=== PATIENT | male | born 1935 | race American Indian/Alaskan Native ===

== ENCOUNTER 2018-05-30 15:15 | Outpatient (CLI) | payer MEDICARE, BC | END 2018-05-30 15:16 | disposition critical access hospital (66) | LOC: EMS 15:15 | PROVIDERS: ATTEND Surgery | DX: R11.2 Nausea with vomiting, unspecified (principal); R52 Pain, unspecified; R53.81 Other malaise; R63.0 Anorexia | CPT/HCPCS: A0425; A0429 ==

== ENCOUNTER 2018-05-30 15:28 | Emergency (ER) | payer MEDICARE, BC ==
[2018-05-30] MEDS ORDERED: ONDANSETRON 4 MG/2 ML VIAL IVP STA (15:47)
[2018-05-30] MEDS ORDERED: SODIUM CHLORIDE 0.9% 1,000 ML IV STA (15:47)
[2018-05-30 16:02] LABS: BASOPHILS % (AUTO) 0.1 %; EOSINOPHILS % (AUTO) 0.1 %; HGB - HEMOGLOBIN 14.7 g/dL (14.0-18.0); LYMPHOCYTES # (AUTO) 0.7 10^3/uL (1.5-3.5); MEAN CORPUSCULAR HEMOGLOBIN 29.3 pg (27.0-31.0); MEAN CORPUSCULAR HGB CONC 32.9 g/dL (32.0-36.0); MONOCYTES # (AUTO) 1.5 10^3/uL (0.0-1.0); MONOCYTES % (AUTO) 10.7 %; NEUTROPHILS # (AUTO) 11.9 10^3/uL (1.5-6.6); NEUTROPHILS % (AUTO) 84.1 %; PLT - PLATELET COUNT 153 10^3/uL (130-450); RED BLOOD COUNT 5.03 10^6/uL (4.70-6.10); RED CELL DISTRIBUTION WIDTH 13.3 % (12.0-15.0); WHITE BLOOD COUNT 14.1 x10^3/uL (4.8-10.8)
[2018-05-30 16:15] LABS: ALBUMIN 3.8 g/dL (3.2-5.5); ALBUMIN/GLOBULIN RATIO 1.4 (1.0-2.2); CALCIUM 9.1 mg/dL (8.5-10.3); CREATININE 1.3 mg/dL (0.6-1.2); TOTAL PROTEIN 6.5 g/dL (6.7-8.2)
--- NOTE | 2018-05-30 17:06 | ED Physician Documentation ---
History of Present Illness - Stated complaint Stated Complaint: N/V - Chief complaint Chief Complaint: General - History obtained from History obtained from: Patient, Family - History of Present Illness Timing: How many days ago (2) Pain level max: 2 Pain level now: 0 Improved by: nothing Worsened by: nothing - Additonal information Additional information: 82-year-old male presents the emergency Department after having one episode of vomiting 2 days ago. Has not vomited since. Has had intermittent nausea. He has not been eating and drinking much. Is currently asking for water. No fevers. Has had some body aches. He does have a history of esophageal cancer and does have an AICD in place as well. His contacted his eligibility services representative who recommended that he come here for evaluation. Review of Systems Ten Systems: 10 systems reviewed and negative Constitutional: reports: Myalgias. denies: Fever, Chills Ears: denies: Ear pain Nose: denies: Rhinorrhea / runny nose, Congestion Cardiac: denies: Palpitations Respiratory: denies: Cough GI: reports: Nausea, Vomiting. denies: Diarrhea Skin: denies: Rash Musculoskeletal: denies: Neck pain, Back pain Neurologic: denies: Headache PD PAST MEDICAL HISTORY - Past Medical History Cardiovascular: Congestive heart failure, Hypertension Respiratory: None Endocrine/Autoimmune: None GI: GERD : Benign prostate hypertrophy HEENT: None Psych: None Musculoskeletal: None Derm: None - Past Surgical History Past Surgical History: Yes Cardiovascular: CABG, Pacemaker, AICD, Cardiac catheterization, Other HEENT: Tracheostomy Derm: Skin grafts - Present Medications Home Medications: Ambulatory Orders Medication Instructions Recorded Confirmed Atorvastatin Calcium [Lipitor] 80 mg PO DAILY 01/09/14 08/21/15 Colesevelam HCl [Welchol] 625 mg PO BID 01/09/14 08/21/15 Ezetimibe [Zetia] 10 mg PO QD 01/09/14 08/21/15 Metoprolol Tartrate [Lopressor] 12.5 mg PO BID 01/09/14 08/21/15 Rivaroxaban [Xarelto] 20 mg PO DAILY 01/09/14 08/21/15 diazePAM [Diazepam] 5 mg PO TID PRN 01/09/14 08/21/15 Ondansetron Odt [Zofran] 4 mg TL Q6H PRN #10 tablet 05/30/18 - Allergies Allergies/Adverse Reactions: Allergies Allergy/AdvReac Type Severity Reaction Status Date / Time No Known Drug Allergies Allergy Verified 05/30/18 15:38 - Social History Does the pt smoke?: No Smoking Status: Never smoker Does the pt drink ETOH?: No Does the pt have substance abuse?: No - Immunizations Immunizations are current?: Yes PD ED PE NORMAL - Vitals Vital signs reviewed: Yes - General General: Alert and oriented X 3, No acute distress - HEENT HEENT: Moist mucous membranes - Neck Neck: Supple, no meningeal sign - Cardiac Cardiac: RRR, Strong equal pulses - Respiratory Respiratory: No respiratory distress, Clear bilaterally - Abdomen Abdomen: Soft, Non tender, Non distended - Derm Derm: Warm and dry - Extremities Extremities: No edema - Neuro Neuro: Alert and oriented X 3 Results - Vitals Vitals: Vital Signs - 24 hr 05/30/18 05/30/18 05/30/18 15:38 18:21 19:39 Temperature 37.2 C 37.1 C Heart Rate 62 71 Respiratory 16 12 16 Rate Blood Pressure 84/52 L 94/63 O2 Saturation 97 96 05/30/18 20:10 Temperature Heart Rate Respiratory 16 Rate Blood Pressure O2 Saturation 99 Oxygen O2 Source Room air - EKG (time done) 1806 Rate: Rate (enter#) (64) Rhythm: Paced Computer interpretation: Agree with computer - Labs Labs: Laboratory Tests 05/30/18 05/30/18 05/30/18 15:56 15:56 15:56 WBC 14.1 H RBC 5.03 Hgb 14.7 Hct 44.8 MCV 89.0 MCH 29.3 MCHC 32.9 RDW 13.3 Plt Count 153 MPV 8.0 Neut # (Auto) 11.9 H Lymph # (Auto) 0.7 L [place] # (Auto) 1.5 H Eos # (Auto) 0.0 Baso # (Auto) 0.0 Absolute Nucleated RBC 0.00 Nucleated RBC % 0.0 Sodium 136 Potassium 4.3 Chloride 99 L Carbon Dioxide 26 Anion Gap 11.0 BUN 32 H Creatinine 1.3 H Estimated GFR (MDRD) 53 L Glucose 130 H Calcium 9.1 Total Bilirubin 1.0 AST 74 H ALT 71 H Alkaline Phosphatase 39 L Troponin I 0.31 Total Protein 6.5 L Albumin 3.8 Globulin 2.7 Albumin/Globulin Ratio 1.4 Lipase 36 Influenza A (Rapid) Influenza B (Rapid) 05/30/18 05/30/18 18:02 18:54 WBC RBC Hgb Hct MCV MCH MCHC RDW Plt Count MPV Neut # (Auto) Lymph # (Auto) [place] # (Auto) Eos # (Auto) Baso # (Auto) Absolute Nucleated RBC Nucleated RBC % Sodium Potassium Chloride Carbon Dioxide Anion Gap BUN Creatinine Estimated GFR (MDRD) Glucose Calcium Total Bilirubin AST ALT Alkaline Phosphatase Troponin I 0.23 Total Protein Albumin Globulin Albumin/Globulin Ratio Lipase Influenza A (Rapid) Negative Influenza B (Rapid) Negative PD MEDICAL DECISION MAKING - ED course Complexity details: reviewed results, re-evaluated patient, considered differential, d/w patient, d/w family ED course: 82-year-old male with chest pain and emesis x1 2 days ago. Chest pain is following emesis and felt like normal reflux to him. Initial troponin was mildly elevated But within the indeterminate range, after a few hours this was repeated and it has gone down. No acute findings on EKG. He is well-appearing, nontoxic. Feels much better after IV fluids and is ambulating without difficulty. We will continue supportive care and follow-up with his doctor. Patient and family counseled regarding signs and symptoms for which I believe and urgent re-evaluation would be necessary. Patient with good understanding of and agreement to plan and is comfortable going home at this time This document was made in part using voice recognition software. While efforts are made to proofread this document, sound alike and grammatical errors may occur. Departure - Departure Disposition: 01 Home, Self Care Clinical Impression: Dehydration Condition: Good Instructions: ED Dehydration Follow-Up: Lambert Kim MD [Primary Care Provider] - Within 3 Days Prescriptions: Ondansetron Odt [Zofran] 4 mg TL Q6H PRN #10 tablet PRN Reason: Nausea / Vomiting Comments: Go home and rest. Drink plenty of fluids. Return if you worsen. Discharge Date/Time: 05/30/18 20:14
[2018-05-30 18:22] VITALS: BP 94/63
[2018-05-30] MEDS ORDERED: SODIUM CHLORIDE 0.9% 1,000 ML IV ONE (18:47)
== END 2018-05-30 20:14 | disposition home or self-care (01) ==
LOC: EDUNIT# → ED 15:28
DX: E86.0 Dehydration (principal); R94.31 Abnormal electrocardiogram [ECG] [EKG]; Z95.810 Presence of automatic (implantable) cardiac defibrillator; Z95.1 Presence of aortocoronary bypass graft; Z85.01 Personal history of malignant neoplasm of esophagus; Z93.0 Tracheostomy status
CPT/HCPCS: 36415; 80053; 83690; 84484; 85025; 87275; 87276; 93005; 96360; 96361; 99283; 99284

== ENCOUNTER 2018-07-11 08:00 | Outpatient (CLI) | payer MEDICARE, BC ==
[2018-07-11 18:47] LABS: BASOPHILS % (AUTO) 0.9 %; EOSINOPHILS # (AUTO) 0.2 10^3/uL (0.0-0.7); EOSINOPHILS % (AUTO) 3.7 %; HGB - HEMOGLOBIN 14.3 g/dL (14.0-18.0); MEAN CORPUSCULAR HEMOGLOBIN 29.8 pg (27.0-31.0); MEAN CORPUSCULAR HGB CONC 32.6 g/dL (32.0-36.0); MEAN CORPUSCULAR VOLUME 91.4 fL (80.0-94.0); MEAN PLATELET VOLUME 8.7 fL (7.4-11.4); MONOCYTES # (AUTO) 0.5 10^3/uL (0.0-1.0); MONOCYTES % (AUTO) 8.1 %; NEUTROPHILS # (AUTO) 3.9 10^3/uL (1.5-6.6); NEUTROPHILS % (AUTO) 70.3 %; PLT - PLATELET COUNT 188 10^3/uL (130-450); RED BLOOD COUNT 4.81 10^6/uL (4.70-6.10); RED CELL DISTRIBUTION WIDTH 13.4 % (12.0-15.0); WHITE BLOOD COUNT 5.6 x10^3/uL (4.8-10.8)
[2018-07-11 19:02] LABS: ALBUMIN 4.4 g/dL (3.2-5.5); ALBUMIN/GLOBULIN RATIO 1.5 (1.0-2.2); CALCIUM 9.6 mg/dL (8.5-10.3); CREATININE 0.8 mg/dL (0.6-1.2); TOTAL PROTEIN 7.3 g/dL (6.7-8.2)
[2018-07-11 19:18] LABS: THYROID STIMULATING HORMONE 8.78 uIU/mL (0.34-5.60)
[2018-07-11 19:20] LABS: FREE T4 (FREE THYROXINE) 0.67 ng/dL (0.58-1.64)
== END 2018-07-11 23:59 | disposition home or self-care (01) ==
LOC: LAB.WCP 08:00
PROVIDERS: ATTEND Family Medicine
DX: I48.92 Unspecified atrial flutter (principal); E03.9 Hypothyroidism, unspecified; R53.83 Other fatigue; R06.09 Other forms of dyspnea; R63.0 Anorexia
CPT/HCPCS: 36415; 80053; 83880; 84439; 84443; 85025

== ENCOUNTER 2018-07-30 13:55 | Outpatient (CLI) | payer MEDICARE, BC ==
[2018-07-30 19:09] LABS: CALCIUM 9.1 mg/dL (8.5-10.3); MAGNESIUM 2.3 mg/dL (1.7-2.8)
== END 2018-07-30 13:56 | disposition home or self-care (01) ==
LOC: LAB.WCP 13:55
PROVIDERS: ATTEND Specialist
DX: I47.2 Ventricular tachycardia (principal)
CPT/HCPCS: 36415; 80048; 83735

== ENCOUNTER 2018-11-13 08:00 | Outpatient (CLI) | payer MEDICARE, BC ==
[2018-11-13 12:25] LABS: BASOPHILS # (AUTO) 0.1 10^3/uL (0.0-0.1); EOSINOPHILS # (AUTO) 0.3 10^3/uL (0.0-0.7); EOSINOPHILS % (AUTO) 5.2 %; HGB - HEMOGLOBIN 14.4 g/dL (14.0-18.0); LYMPHOCYTES # (AUTO) 0.8 10^3/uL (1.5-3.5); LYMPHOCYTES % (AUTO) 16.6 %; MEAN CORPUSCULAR HEMOGLOBIN 29.9 pg (27.0-31.0); MEAN CORPUSCULAR VOLUME 93.6 fL (80.0-94.0); MEAN PLATELET VOLUME 10.8 fL (7.4-11.4); MONOCYTES # (AUTO) 0.4 10^3/uL (0.0-1.0); MONOCYTES % (AUTO) 7.8 %; NEUTROPHILS # (AUTO) 3.5 10^3/uL (1.5-6.6); PLT - PLATELET COUNT 199 10^3/uL (130-450); RED BLOOD COUNT 4.81 10^6/uL (4.70-6.10); RED CELL DISTRIBUTION WIDTH 12.8 % (12.0-15.0)
[2018-11-13 12:33] LABS: HB2 TOTAL 14.8 g/dL; HEMOGLOBIN A1C 0.59 g/dL; HEMOGLOBIN A1C % 5.8 % (4.6-6.2)
[2018-11-13 12:54] LABS: ALBUMIN 4.1 g/dL (3.2-5.5); ALBUMIN/GLOBULIN RATIO 1.2 (1.0-2.2); ALKALINE PHOSPHATASE 53 IU/L (42-121); ALT ALANINE AMINOTRANSFERASE 19 IU/L (10-60); AST ASPARTATE AMINOTRANSFERASE 29 IU/L (10-42); BUN - BLOOD UREA NITROGEN 14 mg/dL (6-20); CALCIUM 9.3 mg/dL (8.5-10.3); CARBON DIOXIDE - CO2 26 mmol/L (21-32); CHLORIDE 103 mmol/L (101-111); CHOL/HDL RATIO 2.7 (<5.0); CHOLESTEROL 137 mg/dL; GFR - MDRD 71 (>89); GLUCOSE 120 mg/dL (70-100); HDL CHOLESTEROL 50 mg/dL; LDL CHOLESTEROL,CALCULATED 64 mg/dL; LDL/HDL RATIO 1.3 (<3.6); SODIUM 140 mmol/L (135-145); TOTAL PROTEIN 7.4 g/dL (6.7-8.2); VLDL CHOLESTEROL 23 mg/dL
== END 2018-11-13 23:59 | disposition home or self-care (01) ==
LOC: LAB.WCP 08:00
PROVIDERS: ATTEND Family Medicine
DX: E74.39 Other disorders of intestinal carbohydrate absorption (principal); R73.09 Other abnormal glucose; E78.5 Hyperlipidemia, unspecified; I10 Essential (primary) hypertension; E03.9 Hypothyroidism, unspecified
CPT/HCPCS: 36415; 80053; 80061; 83036; 83721; 84443; 85025

== ENCOUNTER 2019-01-03 11:06 | Emergency (ER) | payer MEDICARE, BC ==
[2019-01-03 11:31] LABS: BILIRUBIN,URINE NEGATIVE (NEGATIVE); GLUCOSE, URINE (UA) NEGATIVE (NEGATIVE); KETONES,URINE (UA) TRACE mg/dL (NEGATIVE); LEUKOCYTE ESTERASE, URINE TRACE (NEGATIVE); NITRITE,URINE NEGATIVE (NEGATIVE); OCCULT BLOOD,URINE LARGE (NEGATIVE); PROTEIN,URINE >=300 mg/dL (NEGATIVE); UROBILINOGEN,URINE 0.2 (NORMAL) E.U./dL (NORMAL)
[2019-01-03 11:34] LABS: CLARITY,URINE SL. CLOUDY (CLEAR)
[2019-01-03 11:35] LABS: BACTERIA,URINE Few /HPF (None Seen); SQUAMOUS EPITHELIAL CELL,UR RARE Squamous (<= Few)
[2019-01-03 12:15] LABS: BASOPHILS % (AUTO) 0.5 %; EOSINOPHILS # (AUTO) 0.1 10^3/uL (0.0-0.7); EOSINOPHILS % (AUTO) 1.8 %; HGB - HEMOGLOBIN 13.1 g/dL (14.0-18.0); LYMPHOCYTES # (AUTO) 0.7 10^3/uL (1.5-3.5); LYMPHOCYTES % (AUTO) 9.2 %; MEAN CORPUSCULAR HEMOGLOBIN 28.9 pg (27.0-31.0); MEAN CORPUSCULAR HGB CONC 31.5 g/dL (32.0-36.0); MEAN CORPUSCULAR VOLUME 91.8 fL (80.0-94.0); MEAN PLATELET VOLUME 9.7 fL (7.4-11.4); MONOCYTES # (AUTO) 0.7 10^3/uL (0.0-1.0); MONOCYTES % (AUTO) 8.5 %; NEUTROPHILS # (AUTO) 6.2 10^3/uL (1.5-6.6); NEUTROPHILS % (AUTO) 79.7 %; PLT - PLATELET COUNT 181 10^3/uL (130-450); RED BLOOD COUNT 4.53 10^6/uL (4.70-6.10); RED CELL DISTRIBUTION WIDTH 12.5 % (12.0-15.0); WHITE BLOOD COUNT 7.7 x10^3/uL (4.8-10.8)
[2019-01-03 12:23] LABS: CALCIUM 9.1 mg/dL (8.5-10.3)
--- NOTE | 2019-01-03 13:31 | CT Report ---
Reason: eval for kidney stone Procedure Date: 01/03/2019 Accession Number: [id number] / [id number] Procedure: CT - Abdomen/Pelvis WO CPT Code: FULL RESULT: EXAM: CT ABDOMEN AND PELVIS (CT KUB) EXAM DATE: 01/03/2019 12:25 PM. CLINICAL HISTORY: Evaluate for kidney stone. Painful urination. COMPARISONS: None. TECHNIQUE: Routine axial helical CT imaging was performed through the abdomen and pelvis without IV contrast. Reconstructions: Coronal and sagittal. In accordance with CT protocol optimization, one or more of the following dose reduction techniques were utilized for this exam: automated exposure control, adjustment of mA and/or KV based on patient size, or use of iterative reconstructive technique. FINDINGS: Lung Bases: Mild cardiomegaly. Right Kidney/Ureter: No stones, hydronephrosis, or hydroureter. No perinephric fat stranding. Small cyst. Left Kidney/Ureter: No stones, hydronephrosis, or hydroureter. No perinephric fat stranding. Other Solid Organs: Noncontrast images of the solid organs are grossly unremarkable. Gallbladder/Bile Ducts: Small calcified gallstones. Peritoneal Cavity: No free fluid, free air or yanelis adenopathy. Bowel is grossly unremarkable with note of moderate stool burden. Pelvic Organs: No bladder stones. Wall may be slightly inflamed but not well distended. Suspect tiny bladder diverticulum on the right. Prostate grossly unremarkable. Vasculature: Moderate atherosclerotic disease of the aorta and branches. No aneurysm seen. Other: Small fat-containing right inguinal hernia without apparent complication. IMPRESSION: 1. No urinary tract stones or obstruction. 2. Question cystitis. 3. Mild cardiomegaly. 4. Cholelithiasis. 5. Moderate stool burden. RADIA
[2019-01-03] MEDS ORDERED: PHENAZOPYRIDINE 100 MG TABLET PO STA (13:58)
--- NOTE | 2019-01-03 14:01 | ED Physician Documentation ---
PD HPI MALE - Stated complaint Stated Complaint: MALE - Chief complaint Chief Complaint: UTI - History obtained from History obtained from: Patient, Family - History of Present Illness Timing - onset: How many days ago (2) Timing - duration: Days (2) Timing - details: Gradual onset Severity Comments: moderate to severe Associated symptoms: Dysuria, Urinary frequency, Hematuria PD HPI MALE CONTRIB FACTORS: No: Indwelling catheter Similar symptoms before: Has not had sx before Recently seen: Not recently seen - Treatment prior to arrival Treatment prior to arrival: none Review of Systems Ten Systems: 10 systems reviewed and negative Constitutional: denies: Fever, Chills Cardiac: reports: Reviewed and negative Respiratory: reports: Reviewed and negative GI: reports: Abdominal Pain. denies: Nausea, Vomiting, Diarrhea, Hematemesis, Bloody / black stool : reports: Dysuria, Frequency, Hematuria. denies: Hesitancy, Incontinent, Discharge, Vaginal bleeding Neurologic: reports: Reviewed and negative Immunocompromised: reports: Reviewed and negative PD PAST MEDICAL HISTORY - Past Medical History Past Medical History: Yes Cardiovascular: Congestive heart failure, Hypertension Respiratory: None Endocrine/Autoimmune: None GI: GERD : Benign prostate hypertrophy HEENT: None Psych: None Musculoskeletal: None Derm: None - Past Surgical History Past Surgical History: Yes Cardiovascular: CABG, Pacemaker, AICD, Cardiac catheterization, Other HEENT: Tracheostomy Derm: Skin grafts - Present Medications Home Medications: Ambulatory Orders Medication Instructions Recorded Confirmed Atorvastatin Calcium [Lipitor] 80 mg PO DAILY 01/09/14 08/21/15 Colesevelam HCl [Welchol] 625 mg PO BID 01/09/14 08/21/15 Ezetimibe [Zetia] 10 mg PO QD 01/09/14 08/21/15 Metoprolol Tartrate [Lopressor] 12.5 mg PO BID 01/09/14 08/21/15 Rivaroxaban [Xarelto] 20 mg PO DAILY 01/09/14 08/21/15 diazePAM [Diazepam] 5 mg PO TID PRN 01/09/14 08/21/15 Ondansetron Odt [Zofran] 4 mg TL Q6H PRN #10 tablet 05/30/18 Cefpodoxime Proxetil 200 mg PO BID #28 tablet 01/03/19 Phenazopyridine HCl [Pyridium] 200 mg PO TID PRN #6 tablet 01/03/19 - Allergies Allergies/Adverse Reactions: Allergies Allergy/AdvReac Type Severity Reaction Status Date / Time No Known Drug Allergies Allergy Verified 01/03/19 11:11 - Social History Does the pt smoke?: No Smoking Status: Never smoker Does the pt drink ETOH?: No Does the pt have substance abuse?: No - Immunizations Immunizations are current?: Yes PD ED PE NORMAL - Vitals Vital signs reviewed: Yes - General General: Alert and oriented X 3, No acute distress, Well developed/nourished - HEENT HEENT: Atraumatic, Pharynx benign - Neck Neck: Supple, no meningeal sign, No JVD - Cardiac Cardiac: RRR - Respiratory Respiratory: No respiratory distress - Abdomen Abdomen: Soft, Non distended - Male Male : Deferred - Rectal Rectal: Deferred - Derm Derm: Normal color, Warm and dry, No rash - Extremities Extremities: No deformity, No edema - Neuro Neuro: Alert and oriented X 3 Eye Opening: Spontaneous Motor: Obeys Commands Verbal: Oriented GCS Score: 15 - Psych Psych: Normal mood, Normal affect PD ED PE EXPANDED - Male Male : Other (suprapubic tenderness, no CVA tenderness) Results - Vitals Vitals: Vital Signs - 24 hr 01/03/19 01/03/19 11:11 11:46 Temperature 37.1 C 37.3 C Heart Rate 77 66 Respiratory 15 16 Rate Blood Pressure 99/86 H 118/57 L O2 Saturation 100 94 Oxygen O2 Source Room air - Labs Labs: Laboratory Tests 01/03/19 01/03/19 01/03/19 11:19 12:08 12:08 WBC 7.7 RBC 4.53 L Hgb 13.1 L Hct 41.6 L MCV 91.8 MCH 28.9 MCHC 31.5 L RDW 12.5 Plt Count 181 MPV 9.7 Neut # (Auto) 6.2 Lymph # (Auto) 0.7 L [place] # (Auto) 0.7 Eos # (Auto) 0.1 Baso # (Auto) 0.0 Absolute Nucleated RBC 0.00 Nucleated RBC % 0.0 Sodium 137 Potassium 4.1 Chloride 102 Carbon Dioxide 27 Anion Gap 8.0 BUN 15 Creatinine 1.0 Estimated GFR (MDRD) 71 L Glucose 152 H Calcium 9.1 Urine Color YELLOW Urine Clarity SL. CLOUDY Urine pH 6.0 Ur Specific [place] 1.025 Urine Protein >=300 H Urine Glucose (UA) NEGATIVE Urine Ketones TRACE Urine Occult Blood LARGE H Urine Nitrite NEGATIVE Urine Bilirubin NEGATIVE Urine Urobilinogen 0.2 (NORMAL) Ur Leukocyte Esterase TRACE H Urine RBC 11-25 H Urine WBC 4-5 Ur Squamous Epith Cells RARE Squamous Urine Bacteria Few Ur Microscopic Review INDICATED Urine Culture Comments INDICATED - Rads (name of study) CT abdomen and pelvis Radiology: Final report received, See rad report (no kidney stones, gallstones present, cystitis present, inguinal hernia present without incarceration) Procedures - Bedside sono Bedside sono by EMP: Performed bedside US of bladder which shows a thickened bladder wall but no urinary retention. Bladder volume <50 post voiding. Bilateral renal US shows no hydronephrosis and is unremarkable. PD MEDICAL DECISION MAKING - ED course Complexity details: reviewed results, re-evaluated patient, considered differential, d/w patient, d/w family ED course: ddx- UTI, kidney stones, urinary retention, urinary obstruction, cystitis 83 y/o M with hx and exam as documented, His bladder scan is not consistent with urinary retention. he has a thickened bladder wall and hematuria, he is on Xarelto but has no other bleeding. HiS UA is consistent with a possible UTI which is supported by his CT scan of his abdomen. there were no kidney stones and he does have gallstones but these are asymptomatic as well as a R inguinal hernia which has been repaired previously per the pt and is again asymptomatic. This is an uncomplicatd UTI thus will start oral antibiotics, pyridium prn for discomfort. PT is stable for discharge with normal labs other than the UA. Discussed results and plan of care with pt and his to understand and agree with plan to go home with outpt management. Departure - Departure Disposition: 01 Home, Self Care Clinical Impression: UTI (urinary tract infection) Qualifiers: Urinary tract infection type: acute cystitis Hematuria presence: with hematuria Qualified Code(s): N30.01 - Acute cystitis with hematuria Condition: Stable Record reviewed to determine appropriate education?: Yes Instructions: ED UTI Cystitis Male Follow-Up: Lambert Kim MD [Primary Care Provider] - Within 1 week (recheck your symptoms ) Prescriptions: Cefpodoxime Proxetil 200 mg PO BID #28 tablet Phenazopyridine HCl [Pyridium] 200 mg PO TID PRN #6 tablet PRN Reason: dysuria Comments: Your results show a bladder infection called cystitis as well as gallstones and a Right inguinal hernia. Your symptoms of blood in your urine and urinary frequency are due to the cystitis. You should take the prescribed antibiotics as well as the pryidium as needed for bladder pain and discomfort. Follow up with your regular doctor to recheck your symptoms.
[2019-01-03 14:18] VITALS: BP 112/79
== END 2019-01-03 14:18 | disposition home or self-care (01) ==
LOC: ED 11:06
DX: N30.01 Acute cystitis with hematuria (principal); I11.0 Hypertensive heart disease with heart failure; I50.9 Heart failure, unspecified; K21.9 Gastro-esophageal reflux disease without esophagitis; N40.0 Benign prostatic hyperplasia without lower urinary tract symptoms; Z95.1 Presence of aortocoronary bypass graft; Z95.810 Presence of automatic (implantable) cardiac defibrillator; Z79.01 Long term (current) use of anticoagulants; Z79.899 Other long term (current) drug therapy
CPT/HCPCS: 36415; 74176; 80048; 81001; 85025; 87086; 87181; 99284; A9270; 81003

== ENCOUNTER 2019-08-13 08:00 | Outpatient (CLI) | payer MEDICARE, OTHER ==
[2019-08-13 14:06] LABS: ALBUMIN 4.1 g/dL (3.2-5.5); ALBUMIN/GLOBULIN RATIO 1.4 (1.0-2.2); BILIRUBIN,TOTAL 1.2 mg/dL (0.2-1.0); CALCIUM 9.2 mg/dL (8.5-10.3); CREATININE 0.9 mg/dL (0.6-1.2); MAGNESIUM 2.3 mg/dL (1.7-2.8)
== END 2019-08-13 23:59 | disposition home or self-care (01) ==
LOC: LAB.WCP 08:00
PROVIDERS: ATTEND Specialist
DX: I47.2 Ventricular tachycardia (principal); E78.2 Mixed hyperlipidemia
CPT/HCPCS: 36415; 80053; 80061; 81599; 83704; 83721; 83735

== ENCOUNTER 2019-12-15 09:16 | Outpatient (CLI) | payer MEDICARE, OTHER ==
--- NOTE | 2019-12-15 09:20 | XRAY Report ---
PROCEDURE: Foot 3 View LT INDICATIONS: LEFT FOOT PAIN TECHNIQUE: 3 views of the foot were acquired. COMPARISON: None FINDINGS: Bones: Diffuse osteopenia. Nondisplaced fracture involving the proximal phalanx of the left fifth toe . Possible nondisplaced fracture involving the distal phalanx of the left fifth toe. Healed fracture deformities involving the middle phalanx of the left third toe. Remainder of the osseous structures a ppear intact. Normal alignment. Mild degenerative changes of the interphalangeal joint seen throughou t the left foot.. No suspicious bony lesions. Soft tissues: No tibiotalar joint effusion. Achilles tendon appears normal. IMPRESSION: 1. Nondisplaced left fifth toe proximal phalanx fracture with possible nondisplaced fracture of the f ifth toe distal fragments. Recommend correlation with physical examination for point tenderness in th joao areas. 2. Apparent healed fracture deformities of the left third toe middle phalanx. Reviewed by: Edward Rice MD on 12/15/2019 9:19 AM PDT Approved by: Edward Rice MD on 12/15/2019 9:19 AM PDT Station ID: [id number]
== END 2019-12-15 23:59 | disposition home or self-care (01) ==
LOC: DI.WCP 09:16
PROVIDERS: ATTEND Family Medicine
DX: S92.515A Nondisplaced fracture of proximal phalanx of left lesser toe(s), initial encounter for closed fracture (principal)

== ENCOUNTER 2020-12-08 15:20 | Outpatient (CLI) | payer MEDICARE, OTHER ==
[2020-12-08 18:13] LABS: BASOPHILS % (AUTO) 0.7 %; EOSINOPHILS # (AUTO) 0.3 10^3/uL (0.0-0.7); EOSINOPHILS % (AUTO) 5.1 %; HGB - HEMOGLOBIN 14.2 g/dL (14.0-18.0); LYMPHOCYTES % (AUTO) 18.7 %; MEAN CORPUSCULAR HEMOGLOBIN 29.1 pg (27.0-31.0); MEAN CORPUSCULAR HGB CONC 29.6 g/dL (32.0-36.0); MEAN CORPUSCULAR VOLUME 98.4 fL (80.0-94.0); MEAN PLATELET VOLUME 9.9 fL (7.4-11.4); MONOCYTES # (AUTO) 0.4 10^3/uL (0.0-1.0); MONOCYTES % (AUTO) 7.8 %; NEUTROPHILS # (AUTO) 3.7 10^3/uL (1.5-6.6); NEUTROPHILS % (AUTO) 67.5 %; PLT - PLATELET COUNT 192 10^3/uL (130-450); RED BLOOD COUNT 4.88 10^6/uL (4.70-6.10); RED CELL DISTRIBUTION WIDTH 13.3 % (12.0-15.0); WHITE BLOOD COUNT 5.5 x10^3/uL (4.8-10.8)
[2020-12-08 18:42] LABS: ALBUMIN 4.2 g/dL (3.2-5.5); ALBUMIN/GLOBULIN RATIO 1.3 (1.0-2.2); ALKALINE PHOSPHATASE 59 IU/L (42-121); ALT ALANINE AMINOTRANSFERASE 19 IU/L (10-60); AST ASPARTATE AMINOTRANSFERASE 31 IU/L (10-42); BILIRUBIN,TOTAL 0.8 mg/dL (0.2-1.0); BUN - BLOOD UREA NITROGEN 11 mg/dL (6-20); CALCIUM 9.7 mg/dL (8.5-10.3); CARBON DIOXIDE - CO2 26 mmol/L (21-32); CHLORIDE 104 mmol/L (101-111); CHOL/HDL RATIO 3.1 (<5.0); CHOLESTEROL 162 mg/dL; CREATININE 0.9 mg/dL (0.6-1.2); GFR - MDRD 80 (>89); GLUCOSE 130 mg/dL (70-100); HDL CHOLESTEROL 52 mg/dL; LDL CHOLESTEROL,CALCULATED 91 mg/dL; LDL/HDL RATIO 1.8 (<3.6); POTASSIUM 4.1 mmol/L (3.5-5.0); SODIUM 138 mmol/L (135-145); TOTAL PROTEIN 7.5 g/dL (6.7-8.2); TRIGLYCERIDES 93 mg/dL; VLDL CHOLESTEROL 19 mg/dL
[2020-12-08 18:44] LABS: THYROID STIMULATING HORMONE 6.52 uIU/mL (0.34-5.60)
[2020-12-08 19:46] LABS: FREE T4 (FREE THYROXINE) 0.83 ng/dL (0.58-1.64)
[2020-12-08 20:29] LABS: ESTIMATED AVERAGE GLUCOSE 128 mg/dL (70-100); HEMOGLOBIN A1c% 6.1 % (4.27-6.07)
== END 2020-12-08 23:59 | disposition home or self-care (01) ==
LOC: LAB.WCP 15:20
PROVIDERS: ATTEND Family Medicine
DX: I10 Essential (primary) hypertension (principal); E78.5 Hyperlipidemia, unspecified; E03.9 Hypothyroidism, unspecified; E74.39 Other disorders of intestinal carbohydrate absorption; R97.20 Elevated prostate specific antigen [PSA]
CPT/HCPCS: 36415; 80053; 80061; 83036; 83721; 84153; 84439; 84443; 85025

== ENCOUNTER 2022-02-27 17:15 | Emergency (ER) | payer MEDICARE, OTHER ==
[2022-02-27 17:56] LABS: BASOPHILS # (AUTO) 0.1 10^3/uL (0.0-0.1); BASOPHILS % (AUTO) 0.6 %; EOSINOPHILS % (AUTO) 0.2 %; HCT - HEMATOCRIT 47.6 % (42.0-52.0); HGB - HEMOGLOBIN 14.7 g/dL (14.0-18.0); LYMPHOCYTES # (AUTO) 0.5 10^3/uL (1.5-3.5); LYMPHOCYTES % (AUTO) 5.9 %; MEAN CORPUSCULAR HEMOGLOBIN 28.9 pg (27.0-31.0); MEAN CORPUSCULAR HGB CONC 30.9 g/dL (32.0-36.0); MEAN CORPUSCULAR VOLUME 93.5 fL (80.0-94.0); MEAN PLATELET VOLUME 9.4 fL (7.4-11.4); MONOCYTES # (AUTO) 0.5 10^3/uL (0.0-1.0); MONOCYTES % (AUTO) 6.2 %; NEUTROPHILS % (AUTO) 86.6 %; PLT - PLATELET COUNT 190 10^3/uL (130-450); RED BLOOD COUNT 5.09 10^6/uL (4.70-6.10); RED CELL DISTRIBUTION WIDTH 13.9 % (12.0-15.0); WHITE BLOOD COUNT 8.1 x10^3/uL (4.8-10.8)
[2022-02-27 18:09] LABS: ALBUMIN 4.1 g/dL (3.2-5.5); ALBUMIN/GLOBULIN RATIO 1.1 (1.0-2.2); CALCIUM 9.8 mg/dL (8.5-10.3); POTASSIUM 4.2 mmol/L (3.5-5.0); TOTAL PROTEIN 7.8 g/dL (6.7-8.2)
--- NOTE | 2022-02-27 18:16 | XRAY Report ---
PROCEDURE: Chest 1 View X-Ray INDICATIONS: Chest pain TECHNIQUE: One view of the chest was acquired. COMPARISON: CXR 12/24/2014. FINDINGS: Surgical changes and devices: Tracheostomy tube. Clips at the lower neck. Post median sternotomy and CABG. Left pacemaker/AICD. Lungs and pleura: No pleural effusions or pneumothorax. Lungs appear clear. Mediastinum: Mediastinal contours appear unchanged. Heart size is prominent. Bones and chest wall: No suspicious bony lesions. Overlying soft tissues appear unremarkable. IMPRESSION: No acute cardiopulmonary abnormality identified. Reviewed by: Tobias Reich MD on 02/27/2022 6:15 PM [facility] [place] Approved by: Tobias Reich MD on 02/27/2022 6:15 PM PST Station ID: [id number]
--- NOTE | 2022-02-27 18:19 | ED Physician Documentation ---
History of Present Illness - Stated complaint Stated Complaint: CHEST PX - Chief complaint Chief Complaint: Cardiac - History obtained from History obtained from: Patient, Family - History of Present Illness Timing: Today Pain level max: 2 Pain level now: 1 - Additonal information Additional information: Patient is an 86-year-old male brought into the emergency department by his . He has a history of Throat cancer, has a tracheostomy in place. He also has a cardiac history. Apparently reported chest pain to his . States that it started this morning approximately 10 hours ago. He states the pain is mild. He is nonverbal so unable to describe the pain. Nothing seems to make it better or worse. He does state that it is nonradiating. In the center of the chest Review of Systems Ten Systems: 10 systems reviewed and negative Constitutional: denies: Fever, Chills Cardiac: denies: Palpitations Respiratory: denies: Dyspnea, Cough GI: denies: Abdominal Pain, Vomiting, Diarrhea : denies: Dysuria Skin: denies: Rash Musculoskeletal: denies: Neck pain, Back pain Neurologic: denies: Headache PD PAST MEDICAL HISTORY - Past Medical History Cardiovascular: Congestive heart failure, Hypertension Respiratory: None Endocrine/Autoimmune: None GI: GERD : Benign prostate hypertrophy HEENT: None Psych: None Musculoskeletal: None Derm: None - Past Surgical History Past Surgical History: Yes Cardiovascular: CABG, Pacemaker, AICD, Cardiac catheterization, Other HEENT: Tracheostomy Derm: Skin grafts - Present Medications Home Medications: Ambulatory Orders Medication Instructions Recorded Confirmed Atorvastatin Calcium [Lipitor] 80 mg PO DAILY 01/09/14 08/21/15 Colesevelam HCl [Welchol] 625 mg PO BID 01/09/14 08/21/15 Ezetimibe [Zetia] 10 mg PO QD 01/09/14 08/21/15 Metoprolol Tartrate [Lopressor] 12.5 mg PO BID 01/09/14 08/21/15 Rivaroxaban [Xarelto] 20 mg PO DAILY 01/09/14 08/21/15 diazePAM [Diazepam] 5 mg PO TID PRN 01/09/14 08/21/15 Ondansetron Odt [Zofran] 4 mg TL Q6H PRN #10 tablet 05/30/18 Cefpodoxime Proxetil 200 mg PO BID #28 tablet 10/12/19 Phenazopyridine HCl [Pyridium] 200 mg PO TID PRN #6 tablet 01/03/19 - Allergies Allergies/Adverse Reactions: Allergies Allergy/AdvReac Type Severity Reaction Status Date / Time No Known Drug Allergies Allergy Verified 02/27/22 17:33 - Social History Does the pt smoke?: No Smoking Status: Never smoker Does the pt drink ETOH?: No Does the pt have substance abuse?: No - Immunizations Immunizations are current?: Yes PD ED PE NORMAL - Vitals Vital signs reviewed: Yes - General General: No acute distress, Well developed/nourished, Other (Nonverbal, alert, pleasant) - HEENT HEENT: PERRL, Moist mucous membranes - Neck Neck: Supple, no meningeal sign - Cardiac Cardiac: RRR, No murmur, Strong equal pulses - Respiratory Respiratory: No respiratory distress, Clear bilaterally - Abdomen Abdomen: Soft, Non tender, Non distended - Derm Derm: Warm and dry - Extremities Extremities: No edema, No calf tenderness / cord - Neuro Neuro: Alert and oriented X 3 - Psych Psych: Normal mood, Normal affect Results - Vitals Vitals: Oxygen O2 Source Room air - EKG (time done) 1724 Rate: Rate (enter#) (63) Rhythm: Paced - Labs Labs: Laboratory Tests 02/27/22 02/27/22 02/27/22 17:48 17:48 17:48 WBC 8.1 RBC 5.09 Hgb 14.7 Hct 47.6 MCV 93.5 MCH 28.9 MCHC 30.9 L RDW 13.9 Plt Count 190 MPV 9.4 Neut # (Auto) 7.0 H Lymph # (Auto) 0.5 L [place] # (Auto) 0.5 Eos # (Auto) 0.0 Baso # (Auto) 0.1 Absolute Nucleated RBC 0.00 Nucleated RBC % 0.0 Sodium 136 Potassium 4.2 Chloride 99 L Carbon Dioxide 27 Anion Gap 10.0 BUN 8 Creatinine 1.0 Estimated GFR (MDRD) 71 L Glucose 147 H Calcium 9.8 Total Bilirubin 1.0 AST 40 ALT 27 Alkaline Phosphatase 58 Troponin I High Sens 21.9 H* Total Protein 7.8 Albumin 4.1 Globulin 3.7 Albumin/Globulin Ratio 1.1 Lipase 40 - Rads (name of study) cxr Radiology: Final report received, EMP read contemporaneously, See rad report PD MEDICAL DECISION MAKING - ED course Complexity details: reviewed results, re-evaluated patient, considered differential (No ST elevation OR, no aortic dissection, no PE, no tension pneumothorax, no aortic aneurysm), d/w patient, d/w family ED course: 86-year-old male with reported chest pain for well over 6 hours. No acute findings on EKG. Negative high-sensitivity troponin. Does not appear consistent with ACS at this time. The pain is mild currently. Eating and drinking without difficulty. Abdomen is soft, nontender nondistended. We will have him follow-up with his doctor for further care. Patient and family counseled regarding signs and symptoms for which I believe and urgent re- evaluation would be necessary. Patient with good understanding of and agreement to plan and is comfortable going home at this time This document was made in part using voice recognition software. While efforts are made to proofread this document, sound alike and grammatical errors may occur. Departure - Departure Disposition: 01 Home, Self Care Clinical Impression: Chest pain Qualifiers: Chest pain type: unspecified Qualified Code(s): R07.9 - Chest pain, unspecified Condition: Good Instructions: ED Chest Pain Atypical Unkn Cause Follow-Up: your,doctor in 1 week [Other] Comments: Your EKG, chest x-ray and laboratory testing do not show any significant abnormalities today. There are no signs of heart attack. Please follow-up with his doctor for further care. Return if he worsens Discharge Date/Time: 02/27/22 19:09
[2022-02-27] MEDS ORDERED: ACETAMINOPHEN 325 MG TABLET PO STA (18:28)
[2022-02-27 19:08] VITALS: BP 157/82
== END 2022-02-27 19:09 | disposition home or self-care (01) ==
LOC: ED 17:15
DX: R07.9 Chest pain, unspecified (principal); Z93.0 Tracheostomy status; I10 Essential (primary) hypertension; Z95.0 Presence of cardiac pacemaker; Z95.1 Presence of aortocoronary bypass graft; Z79.01 Long term (current) use of anticoagulants
CPT/HCPCS: 36415; 71045; 80053; 83690; 84484; 85025; 93005; 99283; 99284; A9270

== ENCOUNTER 2022-05-14 09:52 | Outpatient (CLI) | payer MEDICARE, OTHER ==
[2022-05-14 10:43] LABS: BASOPHILS % (AUTO) 0.6 %; EOSINOPHILS # (AUTO) 0.1 10^3/uL (0.0-0.7); HCT - HEMATOCRIT 45.1 % (42.0-52.0); HGB - HEMOGLOBIN 14.3 g/dL (14.0-18.0); LYMPHOCYTES # (AUTO) 0.5 10^3/uL (1.5-3.5); LYMPHOCYTES % (AUTO) 9.8 %; MEAN CORPUSCULAR HEMOGLOBIN 29.8 pg (27.0-31.0); MEAN CORPUSCULAR HGB CONC 31.7 g/dL (32.0-36.0); MEAN PLATELET VOLUME 9.7 fL (7.4-11.4); MONOCYTES # (AUTO) 0.4 10^3/uL (0.0-1.0); NEUTROPHILS # (AUTO) 4.4 10^3/uL (1.5-6.6); NEUTROPHILS % (AUTO) 80.4 %; PLT - PLATELET COUNT 213 10^3/uL (130-450); RED CELL DISTRIBUTION WIDTH 13.1 % (12.0-15.0); WHITE BLOOD COUNT 5.4 x10^3/uL (4.8-10.8)
[2022-05-14 11:12] LABS: THYROID STIMULATING HORMONE 31.83 uIU/mL (0.34-5.60)
[2022-05-14 11:14] LABS: FREE T4 (FREE THYROXINE) 0.47 ng/dL (0.58-1.64)
[2022-05-14 11:16] LABS: ALBUMIN 3.6 g/dL (3.2-5.5); ALBUMIN/GLOBULIN RATIO 1.2 (1.0-2.2); ALKALINE PHOSPHATASE 59 IU/L (42-121); ALT ALANINE AMINOTRANSFERASE 14 IU/L (10-60); AST ASPARTATE AMINOTRANSFERASE 24 IU/L (10-42); BILIRUBIN,TOTAL 0.8 mg/dL (0.2-1.0); BUN - BLOOD UREA NITROGEN 12 mg/dL (6-20); CALCIUM 9.3 mg/dL (8.5-10.3); CARBON DIOXIDE - CO2 27 mmol/L (21-32); CHLORIDE 100 mmol/L (101-111); CHOLESTEROL 158 mg/dL; CREATININE 0.9 mg/dL (0.6-1.2); GFR - MDRD 80 (>89); GLUCOSE 99 mg/dL (70-100); HDL CHOLESTEROL 52 mg/dL; LDL CHOLESTEROL,CALCULATED 94 mg/dL; LDL/HDL RATIO 1.8 (<3.6); POTASSIUM 3.9 mmol/L (3.5-5.0); SODIUM 136 mmol/L (135-145); TOTAL PROTEIN 6.7 g/dL (6.7-8.2); TRIGLYCERIDES 62 mg/dL; VLDL CHOLESTEROL 12 mg/dL
--- NOTE | 2022-05-14 13:01 | XRAY Report ---
PROCEDURE: Lumbar Spine 2 View INDICATIONS: BACK PAIN TECHNIQUE: 3 views of the lumbar spine were acquired. COMPARISON: CT of abdomen and pelvis dated 01/03/2019. FINDINGS: Bones: 5 [id number] vertebrae are present. Age-indeterminate anterior wedge compression deformi ty at T12 level is seen with up to 30% loss of T12 vertebral body height anteriorly. Loss of disc hei ght, degenerative endplate changes and bilateral facet arthrosis throughout lumbar spine is seen. No other vertebral body compression fractures. No suspicious bony lesions. Soft tissues: Overlying bowel gas pattern is normal. No suspicious soft tissue calcifications. IMPRESSION: 1. Age-indeterminate anterior wedge compression deformity at T12 level with up to 30% loss of T12 alejandra tebral body height new since 2019 study. 2. No other compression fracture or spondylolisthesis. 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 Reviewed by: Roland Quiros MD on 05/14/2022 1:00 PM PST Approved by: Roland Quiros MD on 05/14/2022 1:00 PM PST Station ID: [id number]
--- NOTE | 2022-05-14 13:14 | XRAY Report ---
PROCEDURE: Thoracic Spine 2 View INDICATIONS: BACK PAIN TECHNIQUE: 3 views of the thoracic spine were acquired. COMPARISON: CT of abdomen and pelvis dated 01/03/2019. FINDINGS: Bones: Age-indeterminate anterior wedge compression deformity involving superior endplate of T12 is s een with up to 30% loss of T12 vertebral body height anteriorly. Degenerative endplate changes are no kailey throughout thoracic spine. No suspicious bony lesions. 12 pairs of ribs are noted, and appear i ntact where visualized. Soft tissues: No paravertebral stripe thickening. IMPRESSION: Indeterminant anterior wedge compression deformity involving superior endplate of T12 as above. No ot her compression fracture or spondylolisthesis. Degenerative disc disease throughout thoracic spine. Reviewed by: Roland Quiros MD on 05/14/2022 1:12 PM PST Approved by: Roland Quiros MD on 05/14/2022 1:12 PM PST Station ID: [id number]
== END 2022-05-14 09:53 | disposition home or self-care (01) ==
LOC: DI 09:52
PROVIDERS: ATTEND Physician Assistant
DX: M48.54XA Collapsed vertebra, not elsewhere classified, thoracic region, initial encounter for fracture (principal); M51.36 Other intervertebral disc degeneration, lumbar region; M51.34 Other intervertebral disc degeneration, thoracic region; R63.4 Abnormal weight loss; E78.5 Hyperlipidemia, unspecified; E03.9 Hypothyroidism, unspecified
CPT/HCPCS: 36415; 80053; 80061; 83721; 84439; 84443; 85025

== ENCOUNTER 2022-07-03 16:38 | Emergency (ER) | payer MEDICARE, OTHER ==
[2022-07-03 16:59] VITALS: BP 139/67
[2022-07-03] MEDS ORDERED: ACETAMINOPHEN 325 MG TABLET PO STA (17:07)
--- NOTE | 2022-07-03 17:13 | ED Physician Documentation ---
History of Present Illness - Stated complaint Stated Complaint: HEADACHE - Chief complaint Chief Complaint: Neuro - History obtained from History obtained from: Patient, Family - Additonal information Additional information: Patient is an 86-year-old male brought into the emergency department by his today. He has a history of dementia, throat cancer, tracheostomy. They were at lunch today and she states that the patient pointed to his head and his asked if he had a headache. The patient noted. He is nonverbal at baseline. She states that he does not usually get headaches, so came to the emergency department. Has not given anything for the headache. When asked if it is a bad headache or a mild headache, the patient nods in response to mild. No trauma. No fevers. No cough. No congestion. No vomiting. Nothing makes it better or worse. There were no focal neurological deficits noted. No facial droop. Review of Systems Constitutional: denies: Fever Cardiac: denies: Chest pain / pressure Respiratory: denies: Cough GI: denies: Abdominal Pain, Vomiting, Diarrhea Skin: denies: Rash PD PAST MEDICAL HISTORY - Past Medical History Cardiovascular: Congestive heart failure, Hypertension Respiratory: None Endocrine/Autoimmune: None GI: GERD : Benign prostate hypertrophy HEENT: None Psych: None Musculoskeletal: None Derm: None - Past Surgical History Past Surgical History: Yes Cardiovascular: CABG, Pacemaker, AICD, Cardiac catheterization, Other HEENT: Tracheostomy Derm: Skin grafts - Present Medications Home Medications: Ambulatory Orders Medication Instructions Recorded Confirmed Atorvastatin Calcium [Lipitor] 80 mg PO DAILY 01/09/14 08/21/15 Colesevelam HCl [Welchol] 625 mg PO BID 01/09/14 08/21/15 Ezetimibe [Zetia] 10 mg PO QD 01/09/14 08/21/15 Metoprolol Tartrate [Lopressor] 12.5 mg PO BID 01/09/14 08/21/15 Rivaroxaban [Xarelto] 20 mg PO DAILY 01/09/14 08/21/15 diazePAM [Diazepam] 5 mg PO TID PRN 01/09/14 08/21/15 Ondansetron Odt [Zofran] 4 mg TL Q6H PRN #10 tablet 05/30/18 Cefpodoxime Proxetil 200 mg PO BID #28 tablet 01/03/19 Phenazopyridine HCl [Pyridium] 200 mg PO TID PRN #6 tablet 01/03/19 - Allergies Allergies/Adverse Reactions: Allergies Allergy/AdvReac Type Severity Reaction Status Date / Time No Known Drug Allergies Allergy Verified 07/03/22 16:48 - Social History Does the pt smoke?: No Smoking Status: Never smoker Does the pt drink ETOH?: No Does the pt have substance abuse?: No - Immunizations Immunizations are current?: Yes PD ED PE NORMAL - Vitals Vital signs reviewed: Yes - General General: No acute distress, Well developed/nourished, Other (Alert, shakes his head yes or no in response to questions) - HEENT HEENT: PERRL, Moist mucous membranes, Pharynx benign - Neck Neck: Supple, no meningeal sign, No bony TTP, Other (Tracheostomy in place) - Cardiac Cardiac: RRR - Respiratory Respiratory: No respiratory distress, Clear bilaterally - Abdomen Abdomen: Soft, Non tender, Non distended - Back Back: No spinal TTP - Derm Derm: Warm and dry - Extremities Extremities: No edema, No calf tenderness / cord - 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, No motor deficit, No sensory deficit, Other (Patient is nonverbal) Results - Vitals Vitals: Oxygen O2 Source Room air - Labs Labs: Laboratory Tests 07/03/22 07/03/22 17:57 17:57 WBC 7.6 RBC 4.94 Hgb 14.9 Hct 45.0 MCV 91.1 MCH 30.2 MCHC 33.1 RDW 13.8 Plt Count 223 MPV 9.1 Neut # (Auto) 5.9 Lymph # (Auto) 0.9 L [place] # (Auto) 0.6 Eos # (Auto) 0.1 Baso # (Auto) 0.1 Absolute Nucleated RBC 0.00 Nucleated RBC % 0.0 Sodium 136 Potassium 3.6 Chloride 100 L Carbon Dioxide 23 Anion Gap 13.0 BUN 11 Creatinine 1.0 Estimated GFR (MDRD) 71 L Glucose 148 H Calcium 9.5 Total Bilirubin 1.0 AST 30 ALT 19 Alkaline Phosphatase 81 Total Protein 7.1 Albumin 3.9 Globulin 3.2 Albumin/Globulin Ratio 1.2 - Rads (name of study) head ct Relevant Findings:: Final report received, See rad report PD Medical Decision Making - ED course Complexity details: reviewed results, considered differential, d/w family ED course: No acute findings on head CT, CBC or chemistries. Headache resolved with Tylenol. No focal neurological deficits. No indication for further work-up. Patient and family counseled regarding signs and symptoms for which I believe and urgent re-evaluation would be necessary. Patient with good understanding of and agreement to plan and is comfortable going home at this time This document was made in part using voice recognition software. While efforts are made to proofread this document, sound alike and grammatical errors may occur. Departure - Departure Disposition: 01 Home, Self Care Clinical Impression: Headache Qualifiers: Headache type: unspecified Headache chronicity pattern: acute headache Intractability: not intractable Qualified Code(s): R51.9 - Headache, unspecified Condition: Good Instructions: ED Cephalgia Unspecified Follow-Up: your,doctor in 1 week [Other] Comments: Your head CT and laboratory testing did not show any acute abnormalities today. Please return if he worsens. You can use Tylenol if the headache recurs. Discharge Date/Time: 07/03/22 18:45
--- NOTE | 2022-07-03 17:53 | CT Report ---
PROCEDURE: HEAD WO INDICATIONS: headache TECHNIQUE: Noncontrast 4.5 mm thick angled axial sections acquired from the foramen magnum to the vertex. For r adiation dose reduction, the following was used: automated exposure control, adjustment of mA and/or kV according to patient size. COMPARISON: 01/11/2015 FINDINGS: Image quality: Excellent. CSF spaces: Basal cisterns are patent. No extra-axial fluid collections. Ventricles are normal in size and shape. Brain: No midline shift. No intracranial masses or hemorrhage. Dinero-white matter interface is norm al. 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 This is not significantly changed compared to 2014. Incidental note is made of a cavum of sept um pellucidum. This is of likely no clinical consequence, when incidentally discovered in isolation. Skull and face: Calvarium and visualized facial bones are intact, without suspicious lesions. Sinuses: Visualized sinuses and mastoids are clear. Postoperative change can be seen, with removal of portions of the medial rosas of the maxillary sinus es. IMPRESSION: No significant intracranial abnormality is seen. 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
[2022-07-03 18:03] LABS: BASOPHILS # (AUTO) 0.1 10^3/uL (0.0-0.1); BASOPHILS % (AUTO) 0.9 %; EOSINOPHILS # (AUTO) 0.1 10^3/uL (0.0-0.7); EOSINOPHILS % (AUTO) 1.2 %; HGB - HEMOGLOBIN 14.9 g/dL (14.0-18.0); LYMPHOCYTES # (AUTO) 0.9 10^3/uL (1.5-3.5); LYMPHOCYTES % (AUTO) 12.2 %; MEAN CORPUSCULAR HEMOGLOBIN 30.2 pg (27.0-31.0); MEAN CORPUSCULAR HGB CONC 33.1 g/dL (32.0-36.0); MEAN CORPUSCULAR VOLUME 91.1 fL (80.0-94.0); MEAN PLATELET VOLUME 9.1 fL (7.4-11.4); MONOCYTES # (AUTO) 0.6 10^3/uL (0.0-1.0); MONOCYTES % (AUTO) 7.3 %; NEUTROPHILS # (AUTO) 5.9 10^3/uL (1.5-6.6); NEUTROPHILS % (AUTO) 78.1 %; PLT - PLATELET COUNT 223 10^3/uL (130-450); RED BLOOD COUNT 4.94 10^6/uL (4.70-6.10); RED CELL DISTRIBUTION WIDTH 13.8 % (12.0-15.0); WHITE BLOOD COUNT 7.6 x10^3/uL (4.8-10.8)
[2022-07-03 18:14] LABS: ALBUMIN 3.9 g/dL (3.2-5.5); ALBUMIN/GLOBULIN RATIO 1.2 (1.0-2.2); CALCIUM 9.5 mg/dL (8.5-10.3); POTASSIUM 3.6 mmol/L (3.5-5.0); TOTAL PROTEIN 7.1 g/dL (6.7-8.2)
== END 2022-07-03 18:45 | disposition home or self-care (01) ==
LOC: ED 16:38
DX: R51.9 Headache, unspecified (principal); I11.0 Hypertensive heart disease with heart failure; I50.9 Heart failure, unspecified; F03.90 Unspecified dementia, unspecified severity, without behavioral disturbance, psychotic disturbance, mood disturbance, and anxiety; Z95.1 Presence of aortocoronary bypass graft; Z95.810 Presence of automatic (implantable) cardiac defibrillator; Z93.0 Tracheostomy status; Z79.899 Other long term (current) drug therapy; Z79.01 Long term (current) use of anticoagulants
CPT/HCPCS: 36415; 70450; 80053; 85025; 99283; 99284; A9270

== ENCOUNTER 2022-07-16 11:06 | Outpatient (CLI) | payer MEDICARE, OTHER ==
[2022-07-16 11:24] LABS: BASOPHILS # (AUTO) 0.1 10^3/uL (0.0-0.1); BASOPHILS % (AUTO) 0.6 %; EOSINOPHILS # (AUTO) 0.1 10^3/uL (0.0-0.7); EOSINOPHILS % (AUTO) 0.9 %; HCT - HEMATOCRIT 44.4 % (42.0-52.0); HGB - HEMOGLOBIN 14.2 g/dL (14.0-18.0); LYMPHOCYTES # (AUTO) 0.6 10^3/uL (1.5-3.5); LYMPHOCYTES % (AUTO) 7.4 %; MEAN CORPUSCULAR HEMOGLOBIN 30.1 pg (27.0-31.0); MEAN CORPUSCULAR VOLUME 94.3 fL (80.0-94.0); MEAN PLATELET VOLUME 8.9 fL (7.4-11.4); MONOCYTES # (AUTO) 0.4 10^3/uL (0.0-1.0); MONOCYTES % (AUTO) 5.7 %; NEUTROPHILS # (AUTO) 6.6 10^3/uL (1.5-6.6); PLT - PLATELET COUNT 256 10^3/uL (130-450); RED BLOOD COUNT 4.71 10^6/uL (4.70-6.10); RED CELL DISTRIBUTION WIDTH 13.7 % (12.0-15.0); WHITE BLOOD COUNT 7.8 x10^3/uL (4.8-10.8)
[2022-07-16 11:41] LABS: ALBUMIN 3.8 g/dL (3.2-5.5); ALBUMIN/GLOBULIN RATIO 1.2 (1.0-2.2); ALKALINE PHOSPHATASE 117 IU/L (42-121); ALT ALANINE AMINOTRANSFERASE 14 IU/L (10-60); AST ASPARTATE AMINOTRANSFERASE 20 IU/L (10-42); BILIRUBIN,TOTAL 0.9 mg/dL (0.2-1.0); BUN - BLOOD UREA NITROGEN 13 mg/dL (6-20); CALCIUM 9.2 mg/dL (8.5-10.3); CARBON DIOXIDE - CO2 28 mmol/L (21-32); CHLORIDE 100 mmol/L (101-111); CHOL/HDL RATIO 3.2 (<5.0); CHOLESTEROL 202 mg/dL; CREATININE 0.9 mg/dL (0.6-1.2); GFR - MDRD 80 (>89); GLUCOSE 113 mg/dL (70-100); HDL CHOLESTEROL 64 mg/dL; LDL CHOLESTEROL,CALCULATED 122 mg/dL; LDL/HDL RATIO 1.9 (<3.6); MAGNESIUM 2.2 mg/dL (1.7-2.8); POTASSIUM 3.8 mmol/L (3.5-5.0); SODIUM 136 mmol/L (135-145); TOTAL PROTEIN 6.9 g/dL (6.7-8.2); TRIGLYCERIDES 81 mg/dL; VLDL CHOLESTEROL 16 mg/dL
== END 2022-07-16 11:07 | disposition home or self-care (01) ==
LOC: LAB 11:06
PROVIDERS: ATTEND Specialist
DX: E78.2 Mixed hyperlipidemia (principal); I25.5 Ischemic cardiomyopathy
CPT/HCPCS: 36415; 80053; 80061; 83721; 83735; 85025

== ENCOUNTER 2022-08-09 16:15 | Outpatient (CLI) | payer MEDICARE, OTHER | END 2022-08-09 23:59 | disposition E | LOC: EMS 16:15 ==